=== PATIENT | female | born 1990 | race Two or more races ===

== ENCOUNTER 2018-08-06 14:01 | Observation (INO) | payer SELFPAY ==
[2015-08-08 17:53] VITALS: BP 108/74
[~2018-08-06] VITALS: Ht 146.1 cm; Wt 64.4 kg
[~2018-08-06 14:01] MED LIST: PREN1TAB80 PO
[2018-08-06 14:52] LABS: BILIRUBIN,URINE NEGATIVE (NEG); CLARITY,URINE CLEAR; COLOR,URINE YELLOW; NITRITE,URINE NEGATIVE (NEG); PROTEIN,URINE NEGATIVE (NEG-TRACE); UROBILINOGEN,URINE 0.2 mg/dL (0.2 mg/dL)
[2018-08-06 14:59] LABS: BARBITURATES NEG (NEG); BENZODIAZEPINES NEG (NEG); CANNABINOIDS NEG (NEG); COCAINE NEG (NEG); METHADONE NEG (NEG); OPIATES NEG (NEG); PHENCYCLIDINE NEG (NEG)
[2018-08-06 15:00] LABS: AMPHETAMINE/METHAMPHETAMINE NEG (NEG)
[2018-08-06] MEDS ORDERED: IV RINGERS,LACTATED 1000ML 1,000 ML IV SCH (15:00)
[2018-08-06 15:05] LABS: SQUAMOUS EPITHELIAL CELL,UR MANY /LPF
[2018-08-06 15:07] LABS: BACTERIA,URINE MODERATE /HPF (0-FEW)
[2018-08-06] MEDS ORDERED: ONDANSETRON PF 4 MG/2 ML VIAL. IM ONE (16:00)
[2018-08-06] MEDS ORDERED: ONDANSETRON PF 4 MG/2 ML VIAL. IV ONE (16:15)
[2018-08-06 16:22] LABS: BASO # 0.1 x10^3/uL (0.0-0.2); BASO % 1 % (0-3); CALCIUM 9.3 mg/dL (8.5-10.1); CREATININE 0.5 mg/dL (0.6-1.0); EOS # 0.2 x10^3/uL (0.0-0.7); EOS % 2 % (0-3); GFR 146.9; HEMATOCRIT 39.2 % (36.0-47.0); LYMPH # 2.4 x10^3/uL (1.0-4.8); LYMPH % 18 % (24-48); MEAN CORPUSCULAR HEMOGLOBIN 29 pg (25-35); MEAN CORPUSCULAR HGB CONC 33 g/dL (31-37); MEAN CORPUSCULAR VOLUME 87 fL (79-100); MONO # 0.5 x10^3/uL (0.0-1.1); MONO % 4 % (0-9); NEUT # 10.2 x10^3uL (1.8-7.7); NEUT % 76 % (31-73); PLATELET COUNT 235 x10^3/uL (140-400); POTASSIUM 4.1 mmol/L (3.5-5.1); RED BLOOD COUNT 4.49 x10^6/uL (3.50-5.40); RED CELL DISTRIBUTION WIDTH 14.2 % (11.5-14.5); WHITE BLOOD COUNT 13.4 x10^3/uL (4.0-11.0)
[2018-08-06 16:28] LABS: ALBUMIN 2.4 g/dL (3.4-5.0); ALBUMIN/GLOBULIN RATIO 0.6 (1.0-1.7); TOTAL BILIRUBIN 0.2 mg/dL (0.2-1.0); TOTAL PROTEIN 6.6 g/dL (6.4-8.2)
== END 2018-08-06 17:43 | disposition home or self-care (01) ==
LOC: 3 SO LND 14:01
PROVIDERS: ADMIT Specialist; ATTEND Specialist
DX: O62.9 Abnormality of forces of labor, unspecified (principal); O21.2 Late vomiting of pregnancy; Z3A.38 38 weeks gestation of pregnancy
CPT/HCPCS: 36415; 80053; 80307; 81001; 85025; 96361; 96374; G0378; G0379; 87086; J2405; J7120

== ENCOUNTER 2018-08-10 18:06 | Observation (INO) | payer SELFPAY ==
[2015-08-08 17:53] VITALS: BP 108/74
[2018-08-10] MEDS ORDERED: SERT50TA PO (18:44)
[2018-08-10 19:08] LABS: BILIRUBIN,URINE NEGATIVE (NEG); CLARITY,URINE CLEAR; COLOR,URINE YELLOW; NITRITE,URINE NEGATIVE (NEG); PH,URINE 7.5; PROTEIN,URINE NEGATIVE (NEG-TRACE); UROBILINOGEN,URINE 0.2 mg/dL (0.2 mg/dL)
[2018-08-10 19:12] LABS: SQUAMOUS EPITHELIAL CELL,UR MOD /LPF
[2018-08-10 19:13] LABS: BACTERIA,URINE FEW /HPF (0-FEW); RBC,URINE OCC /HPF (0-2); WBC,URINE OCC /HPF (0-4)
[2018-08-10 19:18] LABS: AMNIO PT NEGATIVE
== END 2018-08-10 20:32 | disposition home or self-care (01) ==
LOC: 3 SO LND 18:06
PROVIDERS: ADMIT Specialist; ATTEND Specialist
DX: O42.92 Full-term premature rupture of membranes, unspecified as to length of time between rupture and onset of labor (principal); O62.9 Abnormality of forces of labor, unspecified; O26.893 Other specified pregnancy related conditions, third trimester; N89.8 Other specified noninflammatory disorders of vagina; Z3A.38 38 weeks gestation of pregnancy
CPT/HCPCS: 36415; 81001; 84112; 87086; G0378; G0379

== ENCOUNTER 2018-08-12 22:55 | Inpatient (IN) | payer MEDICAID ==
[~2018-08-12] VITALS: Ht 149.9 cm; Wt 65.3 kg
[~2018-08-12 22:55] MED LIST changes: +SERT50TA PO
[2018-08-12 23:07] VITALS: BP 130/81
[2018-08-12] MEDS ORDERED: IV RINGERS,LACTATED 1000ML 1,000 ML IV SCH (23:15)
[2018-08-12] MEDS ORDERED: ACETAMINOPHEN 325 MG TABLET. PO PRN (23:15)
[2018-08-12 23:17] LABS: BILIRUBIN,URINE NEGATIVE (NEG); CLARITY,URINE CLEAR; COLOR,URINE YELLOW; NITRITE,URINE NEGATIVE (NEG); PROTEIN,URINE NEGATIVE (NEG-TRACE); UROBILINOGEN,URINE 0.2 mg/dL (0.2 mg/dL)
[2018-08-12 23:23] LABS: BARBITURATES NEG (NEG); BENZODIAZEPINES NEG (NEG); CANNABINOIDS NEG (NEG); COCAINE NEG (NEG); METHADONE NEG (NEG); OPIATES NEG (NEG); PHENCYCLIDINE NEG (NEG)
[2018-08-12 23:24] LABS: AMPHETAMINE/METHAMPHETAMINE NEG (NEG)
[2018-08-12 23:28] LABS: AMORPHOUS SEDIMENT,UR PRESENT /HPF; BACTERIA,URINE FEW /HPF (0-FEW); RBC,URINE RARE /HPF (0-2); SQUAMOUS EPITHELIAL CELL,UR MOD /LPF
[2018-08-13] MEDS ORDERED: ONDANSETRON PF 4 MG/2 ML VIAL. IV PRN (01:00)
[2018-08-13] MEDS ORDERED: LIDOCAINE 1% PF 30 ML VIAL. INJ PRN (01:00)
[2018-08-13] MEDS ORDERED: TERBUTALINE 1 MG/ML VIAL. SQ PRN (01:00)
[2018-08-13] MEDS ORDERED: OXYTOCIN 30 UNIT/500 ML PREMIX 500 ML IV PRN ×2 (01:00→03:45)
[2018-08-13] MEDS ORDERED: 0.9 % SODIUM CHLORIDE 10 ML DISP.SYRIN. IV PRN ×2 (01:00→03:45)
[2018-08-13] MEDS ORDERED: IBUPROFEN 400 MG TABLET. PO PRN ×2 (01:00→03:45)
[2018-08-13] MEDS ORDERED: CITRIC ACID/SODIUM CITRATE 30 ML SOLUTION. PO PRN (01:00)
[2018-08-13] MEDS ORDERED: MAG HYDROX/ALUMINUM HYD/SIMETH 30 ML ORAL.SUSP PO PRN ×2 (01:00→03:45)
[2018-08-13] MEDS: NALBUPHINE 10 MG/ML AMPUL. IV PRN ×2 (01:14→02:25)
[2018-08-13 01:15] LABS: BASO % 0 % (0-3); EOS # 0.3 x10^3/uL (0.0-0.7); EOS % 2 % (0-3); HEMATOCRIT 39.3 % (36.0-47.0); HEMOGLOBIN 12.9 g/dL (12.0-15.5); LYMPH # 3.5 x10^3/uL (1.0-4.8); LYMPH % 22 % (24-48); MEAN CORPUSCULAR HEMOGLOBIN 29 pg (25-35); MEAN CORPUSCULAR HGB CONC 33 g/dL (31-37); MEAN CORPUSCULAR VOLUME 87 fL (79-100); MONO # 0.6 x10^3/uL (0.0-1.1); MONO % 4 % (0-9); NEUT % 71 % (31-73); PLATELET COUNT 257 x10^3/uL (140-400); RED BLOOD COUNT 4.53 x10^6/uL (3.50-5.40); RED CELL DISTRIBUTION WIDTH 14.1 % (11.5-14.5); WHITE BLOOD COUNT 15.4 x10^3/uL (4.0-11.0)
[2018-08-13] MEDS ORDERED: HYDROCORTISONE 1% TOPICAL OINTMENT 30GM TUBE. TP PRN (03:45)
[2018-08-13] MEDS ORDERED: PHENYLEPH/MINERAL OIL/PETROLAT RECTAL OINTMENT 28GM TUBE. RC PRN (03:45)
[2018-08-13] MEDS ORDERED: SIMETHICONE 80 MG TAB.CHEW PO PRN (03:45)
[2018-08-13] MEDS ORDERED: MAGNESIUM HYDROXIDE 2,400 MG/30 ML ORAL.SUSP. PO PRN (03:45)
[2018-08-13] MEDS ORDERED: ACETAMINOPHEN 325 MG TABLET. PO PRN (03:45)
[2018-08-13] MEDS ORDERED: BENZOCAINE 20% TOPICAL AEROSOL SPRAY 57GM CAN. TP PRN (03:45)
[2018-08-13] MEDS ORDERED: diphenhydrAMINE HCL 25 MG CAPSULE PO PRN (03:45)
[2018-08-13] MEDS ORDERED: ZOLPIDEM 5 MG TABLET. PO PRN (03:45)
[2018-08-13] MEDS ORDERED: IV RINGERS,LACTATED 1000ML 1,000 ML IV PRN (05:00)
[2018-08-13] MEDS: IBUPROFEN 400 MG TABLET. PO SCH ×2 (06:17→19:50)
[2018-08-13 06:29] VITALS: BP 113/64
[2018-08-13 07:00] VITALS: BP 109/63
[2018-08-13] MEDS ORDERED: FERROUS SULFATE 325 MG TABLET. PO SCH (08:00)
[2018-08-13] MEDS: DOCUSATE SODIUM 100 MG CAPSULE. PO PRN ×2 (08:34→19:49)
[2018-08-13] MEDS: HYDROcodone/APAP 5/325MG 1 TAB TABLET PO PRN ×2 (08:35→12:37)
[2018-08-13 10:31] VITALS: BP 97/55
[2018-08-13 17:55] VITALS: BP 113/70
[2018-08-13 22:15] VITALS: BP 97/60
[2018-08-14] MEDS: IBUPROFEN 400 MG TABLET. PO SCH ×3 (05:40→21:54)
[2018-08-14 05:41] VITALS: BP 100/67
[2018-08-14 09:45] VITALS: BP 91/62
--- NOTE | 2018-08-14 13:31 | PDOC ---
Provider Note Provider Note Doing well VSS Uterus NTTP FU in AM JAQUAN COLE MD Aug 14, 2018 13:31
[2018-08-14] MEDS: DOCUSATE SODIUM 100 MG CAPSULE. PO PRN ×2 (15:27→21:53)
[2018-08-14 18:52] VITALS: BP 97/56
[2018-08-14 23:01] VITALS: BP 112/73
[2018-08-15 05:57] VITALS: BP 99/63
[2018-08-15] MEDS: IBUPROFEN 400 MG TABLET. PO SCH (06:27)
[2018-08-15] MEDS: DOCUSATE SODIUM 100 MG CAPSULE. PO PRN (08:29)
[2018-08-15 11:16] VITALS: BP 99/66
[2018-08-15 13:00] VITALS: BP 110/78
--- NOTE | 2018-08-15 16:52 | PDOC3 ---
OB DISCHARGE SUMMARY DATE OF ADMISSION: 08/13/18 DATE OF DISCHARGE: 08/05/18 REASON FOR ADMISSION: Onset of labor INTRAPARTUM PROCEDURES: Spontanous Vag Deliv DISCHARGE DIAGNOSIS: Term Delivered DISCHARGE INFORMATION: Activity (ad rosa), Diet (regular), Instructions (pelvic rest x 6 wks.) HOSPITAL COURSE Term gestation delivered vaginally without any complications. MG MITCHELL Jr, MD Aug 15, 2018 16:52
--- NOTE | 2018-08-27 08:18 | PDOC1 ---
OB - History Hx of Present Care: Good Care Ultrasounds: Normal mid trimester US Obstetrical Complications: None Medical Complications: None Past Family/Social History * Past Medical, Surgical, Family and Obstetric Histories reviewed from chart. Blood Type: O+ Rubella: Immune RPR/VDRL: Negative HBsAG: Negative OB - Chief Complaint & HPI Date of Admission: Date of Admission: Aug 12, 2018 at 22:55 Chief Complaint/History : 2 Para: 1 EDC: Aug 22, 2018 Reason for admission: active labor Admission Nurse Assessment Rev: Yes OB - Admission Exam Physical Exam HEENT: Normal, Nasal Mucosa Normal, Oropharynx Normal, Moist Membranes, Fontanelles Normal Heart: Regular Rate Lungs: Clear, Equal Abdomen: Gravid Extremities: Normal Pulses, No tenderness or swelling Reflexes: Normal Effacement: 100% Membranes: Ruptured Amniotic Fluid: Clear Heart Rate: Normal Accelerations: Accelerations Present Decelerations: Variable decelerations Short Term Variability: Present Reeling Operator Variability: Moderate Contractions on Admission: < 5 Minutes Apart Intensity: Firm Assessment/Plan Assessment/Plan TIUP Active labor ACS JAQUAN COLE MD Aug 27, 2018 08:18
--- NOTE | 2018-08-27 08:20 | PDOC ---
VAGINAL DELIVERY DATE DATE: 08/27/18 TIME: 08:18 : 2 Para: 1 EDC: Aug 22, 2018 VAGINAL DELIVERY: VTX VACCUM ASSISTED: No PLACENTA: Spontaneous SEX: Male WEIGHT Weight [ ] EPISIOTOMY: No EXTENSION: Yes EBL 300cc COMPLICATIONS None CONDITION Stable Signs of Intrauterine Infectio: None Shoulder Dystocia: No DIAGNOSIS JAQUAN Koch MD Aug 27, 2018 08:20
== END 2018-08-15 18:54 | disposition home or self-care (01) | DRG 807 ==
LOC: OBSVTOIN 22:55 → 3 SO LND 22:55 → 3 NORTH 08-13 05:50
PROVIDERS: ADMIT Specialist; ATTEND Specialist
PROC: 10E0XZZ Delivery of Products of Conception, External Approach (ICD-10-PCS; principal; 2018-08-14)
DX: O80 Encounter for full-term uncomplicated delivery (principal); Z37.0 Single live birth; Z3A.40 40 weeks gestation of pregnancy
CPT/HCPCS: 36415; 80307; 81001; 85014; 85025; 86592; 86850; 86900; 86901; 87086; J2300; J2590; J7120

== ENCOUNTER 2021-04-09 09:19 | Emergency (ER) | payer SELFPAY ==
[~2021-04-09] VITALS: Ht 154.9 cm; Wt 59.0 kg
--- NOTE | 2021-04-09 11:48 | RAD ---
OB ultrasound less than 14 weeks 04/09/2021 CLINICAL HISTORY: First trimester with uncertain LMP with vaginal bleeding and cramping. TECHNIQUE: Using the distended urinary bladder as a sonographic window, a real-time ultrasound examin ation of the pelvis was performed. Additionally in an attempt to better evaluate the uterus and adnex a, a transvaginal ultrasound study was performed. Multiple images were obtained. FINDINGS: The uterus is within normal limits in size and echogenicity. It measures 8.1 x 4.4 x 4.1 cm in longitudinal, transverse, and the AP dimensions. The endometrial echo complex measures 7 mm in th ickness which is within normal limits. No gestational sac is seen within the endometrial canal. No fo sukhjinder abnormality of the uterus is seen. Both ovaries are within normal limits in size and echogenicity. The right ovary measures 2.4 x 1.4 x 1.4 cm in size. The left ovary measures 2.0 x 1.3 x 1.1 cm in size. A 9 mm follicle is seen within th e right ovary. No adnexal mass is seen. Normal color-flow and pulse Doppler imaging to both ovaries i s seen. No free fluid is noted. IMPRESSION: Negative study. No IUP is seen. This ultrasound finding could be seen with an very early IUP, missed spontaneous or possibly due to an occult ectopic . Clinical correlation and correlation with the patient's serial beta hCG level is recommended. Electronically signed by: Paul Day MD (04/09/2021 11:46 AM) [id number]
--- NOTE | 2021-04-09 11:55 | PHYS DOC ---
Past Medical History Past Surgical History: No Surgical History General Adult EDM: Chief Complaint: VAGINAL BLEEDING HPI: HPI: Patient is a 30 year old female G3, P2 at approximately 8 weeks gestational age who presents with vaginal bleeding, back pain, and uterine cramping/contractions. States that she began bleeding approximately 1 week ago. Has passed clots, and yesterday, passed thicker tissue-like material. She has had an ultrasound at approximately 7 weeks it did reveal an IUP. This was done at a clinic, however, she does not know the name of the clinic. States that she does not have any regular OB follow-up. Review of Systems: Review of Systems: Constitutional: Denies fever or chills. [] Eyes: Denies change in visual acuity. [] HENT: Denies nasal congestion or sore throat. [] Respiratory: Denies cough or shortness of breath. [] Cardiovascular: Denies chest pain or edema. [] GI: Reports lower abdominal/uterine pain. Denies nausea, vomiting, bloody stools or diarrhea. [] : Reports vaginal bleeding, uterine cramping, ? Passage of tissue Musculoskeletal: Reports low back pain. Denies joint pain. [] Integument: Denies rash. [] Neurologic: Denies headache, focal weakness or sensory changes. [] Endocrine: Denies polyuria or polydipsia. [] Lymphatic: Denies swollen glands. [] Psychiatric: Denies depression or anxiety. [] Heart Score: C/O Chest Pain: N/A Allergies: Allergies: Allergies Coded Allergies Type Severity Reaction Last Updated Verified No Known Drug Allergies 08/06/15 No Physical Exam: PE: Constitutional: Well developed, well nourished, no acute distress, non-toxic appearance. [] HENT: Normocephalic, atraumatic, bilateral external ears normal, oropharynx moist, no oral exudates, nose normal. [] Eyes: PERRLA, EOMI, conjunctiva normal, no discharge. [] Neck: Normal range of motion, no tenderness, supple, no stridor. [] Cardiovascular:Heart rate regular rhythm, no murmur [] Lungs & Thorax: Bilateral breath sounds clear to auscultation [] Abdomen: Mild lower abdominal tenderness to palpation. Soft, nonrigid. No rebound. : External genitalia normal. Small amount of blood present in the vaginal vault. Cervix visualized without lesions. Cervix does appear open and had a small amount of what appears to be tissue present. This was removed with forceps. No ongoing bleeding was noted. Skin: Warm, dry, no erythema, no rash. [] Back: No tenderness, no CVA tenderness. [] Extremities: No tenderness, no cyanosis, no clubbing, ROM intact, no edema. [] Neurologic: Alert and oriented X 3, normal motor function, normal sensory function, no focal deficits noted. [] Psychologic: Affect normal, judgement normal, mood normal. [] Current Patient Data: Labs: Laboratory Tests Test 04/09/21 09:31 POC Urine HCG, Qualitative Hcg positive (Negative) Vital Signs: Vital Signs Date Time Temp Pulse Resp B/P (MAP) Pulse Ox O2 Delivery O2 Flow Rate FiO2 04/09/21 09:31 98.5 60 16 101/61 (74) 99 Room Air 98.5 EKG: EKG: [] Radiology/Procedures: Radiology/Procedures: [] Impression: [facility] [address] [place] [address] IMAGING REPORT Signed PATIENT: JOSE CROSS ACCOUNT: [id number] : 1990 LOCATION: ER AGE: 30 SEX: F EXAM STATUS: REG ER ORD. PHYSICIAN: JAQUAN CHRISTENSEN MD REASON: 1st trimester bleeding, cramping PROCEDURE: OB < 14 WKS OB ultrasound less than 14 weeks 04/09/2021 CLINICAL HISTORY: First trimester with uncertain LMP with vaginal bleeding and cramping. TECHNIQUE: Using the distended urinary bladder as a sonographic window, a real- time ultrasound examination of the pelvis was performed. Additionally in an attempt to better evaluate the uterus and adnexa, a transvaginal ultrasound study was performed. Multiple images were obtained. FINDINGS: The uterus is within normal limits in size and echogenicity. It measures 8.1 x 4.4 x 4.1 cm in longitudinal, transverse, and the AP dimensions. The endometrial echo complex measures 7 mm in thickness which is within normal limits. No gestational sac is seen within the endometrial canal. No focal abnormality of the uterus is seen. Both ovaries are within normal limits in size and echogenicity. The right ovary measures 2.4 x 1.4 x 1.4 cm in size. The left ovary measures 2.0 x 1.3 x 1.1 cm in size. A 9 mm follicle is seen within the right ovary. No adnexal mass is seen. Normal color-flow and pulse Doppler imaging to both ovaries is seen. No free fluid is noted. IMPRESSION: Negative study. No IUP is seen. This ultrasound finding could be seen with an very early IUP, missed spontaneous or possibly due to an occult ectopic . Clinical correlation and correlation with the patient's serial beta hCG level is recommended. Electronically signed by: Paul Day MD (04/09/2021 11:46 AM) [id number] DICTATED and SIGNED BY: PAUL DAY MD DATE: 04/09/21 [id number] 0 Course & Med Decision Making: Course & Med Decision Making Pertinent Labs and Imaging studies reviewed. (See chart for details) Patient is a 30-year-old female G3, P2 at approximately 8 weeks gestational age who presents with a week of vaginal bleeding, lower abdominal cramping/contractions, low back pain, and passage of ? tissue. Hemodynamically stable on arrival. Well-appearing on exam. Concern for miscarriage. Ultrasound, beta-hCG, blood counts, and blood type (since Rh status is unknown) ordered. 1155 B-hcg 649. US without IUP. Given she had a confirmed IUP ~ 1 week ago, this is likely a miscarriage. Blood type: O+. No rhogam indicated. Small amount of likely tissue was seen on pelvic examination and removed with forceps. Cervical os appeared open. She was provided with an OB follow up. Explained expected clinical course and given return precautions for increased bleeding, pain, or fever/chills. 1246 Dragon Disclaimer: Dragon Disclaimer: This electronic medical record was generated, in whole or in part, using a voice recognition dictation system. Departure Departure Impression: Primary Impression: Miscarriage Disposition: HOME HEALTH CARE SERVICE Condition: STABLE Referrals: NO PCP (PCP) HANANE CARLISLE MD Schedule a follow up appointment. Patient Instructions: Miscarriage JAQUAN CHRISTENSEN MD Apr 09, 2021 11:55
[2021-04-09 12:14] LABS: BASO % 1 % (0-3); EOS # 0.2 x10^3/uL (0.0-0.7); EOS % 3 % (0-3); HEMATOCRIT 38.9 % (36.0-47.0); HEMOGLOBIN 12.9 g/dL (12.0-15.5); LYMPH # 2.5 x10^3/uL (1.0-4.8); LYMPH % 31 % (24-48); MEAN CORPUSCULAR HEMOGLOBIN 29 pg (25-35); MEAN CORPUSCULAR HGB CONC 33 g/dL (31-37); MEAN CORPUSCULAR VOLUME 88 fL (79-100); MONO # 0.3 x10^3/uL (0.0-1.1); MONO % 4 % (0-9); NEUT % 62 % (31-73); PLATELET COUNT 223 x10^3/uL (140-400); RED BLOOD COUNT 4.43 x10^6/uL (3.50-5.40); RED CELL DISTRIBUTION WIDTH 13.7 % (11.5-14.5); WHITE BLOOD COUNT 8.1 x10^3/uL (4.0-11.0)
[2021-04-09 13:30] VITALS: BP 115/56
== END 2021-04-09 13:40 | disposition home or self-care (01) ==
LOC: ER 09:19
DX: O03.9 Complete or unspecified spontaneous abortion without complication (principal); Z3A.08 8 weeks gestation of pregnancy
CPT/HCPCS: 36415; 76801; 81025; 84702; 85025; 86900; 86901; 99285-25

== ENCOUNTER 2021-05-21 08:14 | Emergency (ER) | payer SELFPAY ==
[~2021-05-21] VITALS: Ht 157.5 cm; Wt 57.4 kg
[2021-05-21] MEDS ORDERED: IV NORMAL SALINE 1000ML BAG 1,000 ML IV SCH (09:30)
[2021-05-21] MEDS ORDERED: ACETAMINOPHEN 500 MG TABLET PO ONE (09:30)
[2021-05-21 09:40] LABS: BILIRUBIN,URINE NEGATIVE (NEG); CLARITY,URINE CLEAR; COLOR,URINE YELLOW; NITRITE,URINE NEGATIVE (NEG); PH,URINE 7.5 (<5.0-8.0); PROTEIN,URINE NEGATIVE (NEG-TRACE); UROBILINOGEN,URINE 0.2 mg/dL (0.2 mg/dL)
[2021-05-21 09:59] LABS: BACTERIA,URINE FEW /HPF (0-FEW); RBC,URINE 0 /HPF (0-2)
--- NOTE | 2021-05-21 10:42 | PHYS DOC ---
Past Medical History Past Surgical History: Other Additional Past Surgical Histo: 03/2021 Smoking Status: Never Smoker Alcohol Use: None General Adult EDM: Chief Complaint: OTHER COMPLAINTS HPI: HPI: Patient is a 30 year old female who presents with miscarriage April 09 and was seen here but never followed up with a OB doctor. She states 3 weeks ago she took a test and it was positive. She states she is having back pain, chills and generalized weakness. She is worried she is having another miscarriage or may be there was products of conception still in her uterus. She is G3, P2. She rates her back pain a 7 out of 10. She denies chest pain, shortness of breath, nausea, vomiting, diarrhea, vaginal discharge, vaginal bleeding, concern for STD, urinary symptoms, constipation headache, dizziness. Review of Systems: Review of Systems: Constitutional: Denies fever or +chills. [] Eyes: Denies change in visual acuity. [] HENT: Denies nasal congestion or sore throat. [] Respiratory: Denies cough or shortness of breath. [] Cardiovascular: Denies chest pain or edema. [] GI: Denies abdominal pain, nausea, vomiting, bloody stools or diarrhea. [] : Denies dysuria. [] Musculoskeletal: + Lower back pain or denies joint pain. [] Integument: Denies rash. [] Neurologic: Denies headache, focal weakness or sensory changes. + Generalized weakness [] Endocrine: Denies polyuria or polydipsia. [] Lymphatic: Denies swollen glands. [] Psychiatric: Denies depression or anxiety. [] Heart Score: C/O Chest Pain: No Current Medications: Current Medications Medications (Trade) Dose Ordered Sig/[facility] Start Time Stop Time Status Last Admin Dose Admin Acetaminophen (Tylenol) 1,000 mg 1X ONCE 05/21/21 09:30 05/21/21 09:31 DC Sodium Chloride 1,000 ml @ 1,000 mls/hr Q1H 05/21/21 09:30 05/21/21 10:29 DC Allergies: Allergies: Allergies Coded Allergies Type Severity Reaction Last Updated Verified No Known Drug Allergies 08/06/15 No Physical Exam: PE: Constitutional: Well developed, well nourished, no acute distress, non-toxic appearance. [] HENT: Normocephalic, atraumatic, bilateral external ears normal, oropharynx moist, no oral exudates, nose normal. [] Eyes: PERRLA, EOMI, conjunctiva normal, no discharge. [] Neck: Normal range of motion, no tenderness, supple, no stridor. [] Cardiovascular:Heart rate regular rhythm, no murmur [] Lungs & Thorax: Bilateral breath sounds clear to auscultation [] Abdomen: Bowel sounds normal, soft, no tenderness, no masses, no pulsatile masses. [] Skin: Warm, dry, no erythema, no rash. [] Back: No tenderness, no CVA tenderness. [] Extremities: No tenderness, no cyanosis, no clubbing, ROM intact, no edema. [] Neurologic: Alert and oriented X 3, normal motor function, normal sensory functi on, no focal deficits noted. [] Psychologic: Affect normal, judgement normal, mood normal. [] Normal physical exam Current Patient Data: Labs: Laboratory Tests Test 05/21/21 08:58 Urine Collection Type Unknown Urine Color Yellow Urine Clarity Clear Urine pH 7.5 (<5.0-8.0) Urine Specific [place] 1.025 (1.000-1.030) Urine Protein Negative mg/dL (NEG-TRACE) Urine Glucose (UA) Negative mg/dL (NEG) Urine Ketones (Stick) Negative mg/dL (NEG) Urine Blood Negative (NEG) Urine Nitrite Negative (NEG) Urine Bilirubin Negative (NEG) Urine Urobilinogen Dipstick 0.2 mg/dL (0.2 mg/dL) Urine Leukocyte Esterase Small (NEG) Urine RBC 0 /HPF (0-2) Urine WBC 1-4 /HPF (0-4) Urine Squamous Epithelial Cells Few /LPF Urine Bacteria Few /HPF (0-FEW) Vital Signs: Vital Signs Date Time Temp Pulse Resp B/P (MAP) Pulse Ox O2 Delivery O2 Flow Rate FiO2 05/21/21 08:36 98.2 67 16 108/61 (77) 98 Room Air 98.2 EKG: EKG: [] Radiology/Procedures: Radiology/Procedures: [] Impression: [facility] [address] [place] [address] IMAGING REPORT Signed PATIENT: JOSE CROSS ACCOUNT: [id number] : 1990 LOCATION: ER AGE: 30 SEX: F EXAM STATUS: REG ER ORD. PHYSICIAN: SP WILLIAMSON APRN REASON: MISCARRIAGE 1 MONTH AGO, NEVER FOLLOWED UP, FEVER, CHILLS PROCEDURE: OB <14 WKS W/TV US OB <14 WKS +TV History: Reason: MISCARRIAGE 1 MONTH AGO, NEVER FOLLOWED UP, FEVER, CHILLS / Spl. Instructions: / History: Comparison: April 09, 2021. Technique: Grayscale and color Doppler imaging of the pelvis was performed using transabdominal technique. Findings: The uterus measures 8.4 x 4.7 x 3.6 cm. Single intrauterine gestational sac with regular appearance. Yolk sac is identified. pole is identified with crown-rump length 0.25 cm. Estimated gestational age by ultrasound 5 weeks 6 days. heart rate 103 bpm. No perig estational fluid collection. Right ovary measures 2.8 x 2.3 x 2.0 cm. Dominant right ovarian follicle measures 1.8 cm, may represent corpus luteal cyst. Left ovary measures 2.4 x 1.0 x 1.3 cm. Normal Doppler flow to the ovaries bilaterally. No adnexal masses are seen. IMPRESSION: 1. Single intrauterine with gestational age 5 weeks 6 days and heart rate 103 bpm. Recommend continued ultrasound follow-up and routine anatomic screening at 18-22 weeks. Electronically signed by: Sara Carlisle DO (05/21/2021 12:04 PM) [id number] DICTATED and SIGNED BY: SARA CARLISLE DO DATE: 05/21/21 [id number] 0 Course & Med Decision Making: Course & Med Decision Making Pertinent Labs and Imaging studies reviewed. (See chart for details) See HPI. Alert and oriented x4. Ambulatory with steady gait. Speaks in full clear sentences. Skin pink warm and dry. Abdomen is soft and nontender. No CVA tenderness. Afebrile. [] Dragon Disclaimer: Dragon Disclaimer: This electronic medical record was generated, in whole or in part, using a voice recognition dictation system. Departure Departure Impression: Primary Impression: Abdominal pain affecting Additional Impression: UTI (urinary tract infection) during Qualified Codes: O23.41 - Unspecified infection of urinary tract in , first trimester Disposition: HOME / SELF CARE / HOMELESS Condition: STABLE Referrals: NO PCP (PCP) Patient Instructions: Abdominal Pain During , - Urinary Tract Infection Additional Instructions: Follow up with primary care provider or OB doctor as soon as possible. Drink plenty of fluids. Take Tylenol for your pain. Scripts Cephalexin (KEFLEX) 500 Mg Capsule 1 CAP PO TID, #21 CAP Prov: SP WILLIAMSON APRN 05/21/21 SP WILLIAMSON APRN May 21, 2021 10:42
[2021-05-21 10:46] LABS: U PREG PATIENT POSITIVE (NEG)
[2021-05-21 11:26] LABS: CALCIUM 9.1 mg/dL (8.5-10.1); CREATININE 0.6 mg/dL (0.6-1.0); GFR 117.4; POTASSIUM 3.8 mmol/L (3.5-5.1)
[2021-05-21 11:27] LABS: BASO % 0 % (0-3); EOS # 0.2 x10^3/uL (0.0-0.7); EOS % 3 % (0-3); HEMATOCRIT 41.1 % (36.0-47.0); HEMOGLOBIN 13.7 g/dL (12.0-15.5); LYMPH % 33 % (24-48); MEAN CORPUSCULAR HEMOGLOBIN 29 pg (25-35); MEAN CORPUSCULAR HGB CONC 33 g/dL (31-37); MEAN CORPUSCULAR VOLUME 88 fL (79-100); MONO # 0.4 x10^3/uL (0.0-1.1); MONO % 4 % (0-9); NEUT # 5.5 x10^3/uL (1.8-7.7); NEUT % 60 % (31-73); PLATELET COUNT 249 x10^3/uL (140-400); RED BLOOD COUNT 4.68 x10^6/uL (3.50-5.40); RED CELL DISTRIBUTION WIDTH 13.7 % (11.5-14.5); WHITE BLOOD COUNT 9.2 x10^3/uL (4.0-11.0)
[2021-05-21 11:33] LABS: ALBUMIN 3.4 g/dL (3.4-5.0); ALBUMIN/GLOBULIN RATIO 0.8 (1.0-1.7); INFLUENZA A PATIENT NEGATIVE (NEGATIVE); INFLUENZA B PATIENT NEGATIVE (NEGATIVE); TOTAL BILIRUBIN 0.3 mg/dL (0.2-1.0); TOTAL PROTEIN 7.9 g/dL (6.4-8.2)
--- NOTE | 2021-05-21 12:06 | RAD ---
US OB <14 WKS +TV History: Reason: MISCARRIAGE 1 MONTH AGO, NEVER FOLLOWED UP, FEVER, CHILLS / Spl. Instructions: / Hi story: Comparison: April 09, 2021. Technique: Grayscale and color Doppler imaging of the pelvis was performed using transabdominal techn ique. Findings: The uterus measures 8.4 x 4.7 x 3.6 cm. Single intrauterine gestational sac with regular appearance. Yolk sac is identified. pole is id entified with crown-rump length 0.25 cm. Estimated gestational age by ultrasound 5 weeks 6 days. Feta l heart rate 103 bpm. No perigestational fluid collection. Right ovary measures 2.8 x 2.3 x 2.0 cm. Dominant right ovarian follicle measures 1.8 cm, may represe nt corpus luteal cyst. Left ovary measures 2.4 x 1.0 x 1.3 cm. Normal Doppler flow to the ovaries bilaterally. No adnexal masses are seen. IMPRESSION: 1. Single intrauterine with gestational age 5 weeks 6 days and heart rate 103 bpm. R ecommend continued ultrasound follow-up and routine anatomic screening at 18-22 weeks. Electronically signed by: Kingston Pantoja DO (05/21/2021 12:04 PM) [id number]
[2021-05-21] MEDS ORDERED: CEPH500C PO (12:28)
[2021-05-21 12:53] VITALS: BP 111/53
--- NOTE | 2021-05-24 13:23 | NUR ---
IP: Attempted to contact pt concerning covid results. Phone number is to a business so did not leave a voicemail.
== END 2021-05-21 13:01 | disposition home or self-care (01) ==
LOC: ER 08:14
DX: O23.41 Unspecified infection of urinary tract in pregnancy, first trimester (principal); Z20.822 Contact with and (suspected) exposure to COVID-19
CPT/HCPCS: 36415; 76801; 76817; 80053; 81001; 81025; 83605; 83690; 84702; 85025; 87086; 87147; 87426; 87491; 87591; 87804; 96360; 99285; J7030; U0003; U0005